=== PATIENT | male | born 1960 | race Caucasian/White ===

== ENCOUNTER 2018-03-28 19:07 | Emergency (ER) | payer BC ==
[2018-03-28 20:22] LABS: ABS Basophils 0.1 10^3/ul (0-0.2); ABS Eosinophils 0.1 10^3/ul (0-0.6); ABS Lymphocytes 2.6 10^3/ul (1.0-4.8); ABS Monocytes 0.9 10^3/ul (0-0.8); ABS Neutrophils 11.2 10^3/ul (1.5-7.7); ABS Nucleated RBC 0 10^3/ul; Eosinophil % 0.9 % (0-6); Hematocrit 45 % (42-52); Hemoglobin 15.7 g/dl (14.0-18.0); Lymphocyte % 17.3 % (25-47); Mean Corpuscular HGB Conc 35 g/dl (31-36); Mean Corpuscular Hemoglobin 32 pg (27-31); Mean Corpuscular Volume 93 fL (80-94); Mean Platelet Volume 7.6 um3 (7.4-10.4); Nucleated Red Blood Cells % 0.1; Platelet Count 222 10^3/ul (150-450); Red Blood Count 4.88 10^6/ul (4.00-5.40); Red Cell Distribution Width 14 % (10.5-15); White Blood Count 14.9 10^3/ul (3.5-10.8)
[2018-03-28 20:41] LABS: EGFR Non-African American 88.7 (>60)
[2018-03-28] MEDS ORDERED: NS 0.9% 1000 ML* 1,000 ML IV ONE (21:47)
[2018-03-29] MEDS ORDERED: Iohexol 300* (CONTRAST) 10 ML SDV IV ONE (00:28)
[2018-03-29 00:44] LABS: Urine Appearance Clear; Urine Blood 1+ (Negative); Urine Color Yellow; Urine Ketones 1+ (Negative); Urine Protein Negative (Negative); Urine Red Blood Cell Trace(0-2/hpf) (Absent); Urine Specific Gravity 1.047 (1.010-1.030); Urine Urobilinogen Negative (Negative); Urine White Blood Cell Trace(0-5/hpf) (Absent)
--- NOTE | 2018-03-29 02:27 | ED ---
GI/ HPI - HPI Summary HPI Summary: 57-year-old male presents with lower abdominal pain for the past 2 days. He admits to loose stools. He denies any fevers. Denies any nausea vomiting. Has never has before. no previous belly surgeries. No pain with urination. No flank pain. No hematuria. No blood in his stool. Has no medical conditions. No chest pain or shortness breath. States pain is greatest in the midline and then goes across his lower abdomen. He states area feels bloated. He said it is an achy type pain. Has not taking anything for his symptoms. - History of Current Complaint Chief Complaint: EDAbdPain Time Seen by Provider: 03/28/18 21:41 Stated Complaint: ABD PAIN Pain Intensity: 97 - Allergy/Home Medications Allergies/Adverse Reactions: Allergies Allergy/AdvReac Type Severity Reaction Status Date / Time amoxicillin Allergy Unknown Verified 03/28/18 19:09 Reaction Details Penicillins Allergy Unknown Verified 03/28/18 19:09 Reaction Details Home Medications: Home Medications Hydrochlorothiazide TAB* [Hydrodiuril TAB*] 12.5 mg PO DAILY 03/28/18 [History Confirmed 03/28/18] Losartan TAB* [Cozaar TAB*] 50 mg PO DAILY 03/28/18 [History Confirmed 03/28/18] PMH/Surg Hx/FS Hx/Imm Hx Endocrine/Hematology History: Denies: Hx Diabetes Cardiovascular History: Reports: Hx Hypertension History: Denies: Hx Renal Disease - Surgical History Surgery Procedure, Year, and Place: double hernia repair as an Infectious Disease History: No Infectious Disease History: Denies: Traveled Outside the [place] in Last 30 Days - Social History Alcohol Use: None Substance Use Type: Reports: None Smoking Status (MU): Never Smoked Tobacco Review of Systems Negative: Fever Negative: Chest Pain Negative: Shortness Of Breath Positive: Abdominal Pain, Diarrhea. Negative: Vomiting, Nausea All Other Systems Reviewed And Are Negative: Yes Physical Exam Triage Information Reviewed: Yes Vital Signs On Initial Exam: Initial Vitals Temp Pulse Resp BP Pulse Ox 98.4 F 82 16 135/84 95 03/28/18 19:10 03/28/18 19:10 03/28/18 19:10 03/28/18 19:10 03/28/18 19:10 Vital Signs Reviewed: Yes Appearance: Positive: Well-Appearing Skin: Positive: Warm, Dry Head/Face: Positive: Normal Head/Face Inspection Eyes: Positive: Normal, Conjunctiva Clear ENT: Positive: Pharynx normal Respiratory/Lung Sounds: Positive: Clear to Auscultation, Breath Sounds Present Cardiovascular: Positive: Normal, RRR Abdomen Description: Positive: Soft, Other: - lower abdominal pain Bowel Sounds: Positive: Present Musculoskeletal: Positive: Normal Neurological: Positive: Normal Psychiatric: Positive: Normal Diagnostics - Vital Signs Vital Signs Temp Pulse Resp BP Pulse Ox 03/29/18 02:00 86 94 03/29/18 01:53 82 164/88 92 03/29/18 01:23 84 170/93 94 03/29/18 01:00 84 94 03/29/18 00:53 79 161/93 94 03/29/18 00:34 85 168/90 95 03/29/18 00:00 84 94 03/28/18 23:53 85 174/93 92 03/28/18 23:37 87 94 03/28/18 23:22 82 186/91 93 03/28/18 23:00 85 94 03/28/18 22:53 84 165/92 95 03/28/18 22:22 83 168/91 96 03/28/18 22:00 89 97 03/28/18 21:52 81 157/89 94 03/28/18 21:26 98.6 F 83 16 133/75 03/28/18 19:10 98.4 F 82 16 135/84 95 - Laboratory Lab Results: Lab Results 03/28/18 03/28/18 03/28/18 Range/Units 20:13 20:13 20:13 WBC 14.9 H (3.5-10.8) 10^3/ul RBC 4.88 (4.00-5.40) 10^6/ul Hgb 15.7 (14.0-18.0) g/dl Hct 45 (42-52) % MCV 93 (80-94) fL MCH 32 H (27-31) pg MCHC 35 (31-36) g/dl RDW 14 (10.5-15) % Plt Count 222 (150-450) 10^3/ul MPV 7.6 (7.4-10.4) um3 Neut % (Auto) 75.2 (38-83) % Lymph % (Auto) 17.3 L (25-47) % Leslie % (Auto) 5.9 (0-7) % Eos % (Auto) 0.9 (0-6) % Baso % (Auto) 0.7 (0-2) % Absolute Neuts (auto) 11.2 H (1.5-7.7) 10^3/ul Absolute Lymphs (auto) 2.6 (1.0-4.8) 10^3/ul Absolute Monos (auto) 0.9 H (0-0.8) 10^3/ul Absolute Eos (auto) 0.1 (0-0.6) 10^3/ul Absolute Basos (auto) 0.1 (0-0.2) 10^3/ul Absolute Nucleated RBC 0 10^3/ul Nucleated RBC % 0.1 Sodium 139 (135-145) mmol/L Potassium 3.5 (3.5-5.0) mmol/L Chloride 99 L (101-111) mmol/L Carbon Dioxide 31 (22-32) mmol/L Anion Gap 9 (2-11) mmol/L BUN 22 (6-24) mg/dL Creatinine 0.89 (0.67-1.17) mg/dL Est GFR ( Amer) 107.4 (>60) Est GFR (Non-Af Amer) 88.7 (>60) BUN/Creatinine Ratio 24.7 H (8-20) Glucose 98 (70-100) mg/dL Lactic Acid 0.7 (0.5-2.0) mmol/L Calcium 9.8 (8.6-10.3) mg/dL Total Bilirubin 1.30 H (0.2-1.0) mg/dL AST 14 (13-39) U/L ALT 29 (7-52) U/L Alkaline Phosphatase 65 (34-104) U/L C-Reactive Protein 257.48 H (<8.01) mg/L Total Protein 7.9 (6.4-8.9) g/dL Albumin 4.3 (3.2-5.2) g/dL Globulin 3.6 (2-4) g/dL Albumin/Globulin Ratio 1.2 (1-3) Lipase 23 (11.0-82.0) U/L Urine Color Urine Appearance Urine pH (5-9) Ur Specific [place] (1.010-1.030) Urine Protein (Negative) Urine Ketones (Negative) Urine Blood (Negative) Urine Nitrate (Negative) Urine Bilirubin (Negative) Urine Urobilinogen (Negative) Ur Leukocyte Esterase (Negative) Urine WBC (Auto) (Absent) Urine RBC (Auto) (Absent) Urine Bacteria (Absent) Urine Glucose (Negative) 03/29/18 Range/Units 00:32 WBC (3.5-10.8) 10^3/ul RBC (4.00-5.40) 10^6/ul Hgb (14.0-18.0) g/dl Hct (42-52) % MCV (80-94) fL MCH (27-31) pg MCHC (31-36) g/dl RDW (10.5-15) % Plt Count (150-450) 10^3/ul MPV (7.4-10.4) um3 Neut % (Auto) (38-83) % Lymph % (Auto) (25-47) % Leslie % (Auto) (0-7) % Eos % (Auto) (0-6) % Baso % (Auto) (0-2) % Absolute Neuts (auto) (1.5-7.7) 10^3/ul Absolute Lymphs (auto) (1.0-4.8) 10^3/ul Absolute Monos (auto) (0-0.8) 10^3/ul Absolute Eos (auto) (0-0.6) 10^3/ul Absolute Basos (auto) (0-0.2) 10^3/ul Absolute Nucleated RBC 10^3/ul Nucleated RBC % Sodium (135-145) mmol/L Potassium (3.5-5.0) mmol/L Chloride (101-111) mmol/L Carbon Dioxide (22-32) mmol/L Anion Gap (2-11) mmol/L BUN (6-24) mg/dL Creatinine (0.67-1.17) mg/dL Est GFR ( Amer) (>60) Est GFR (Non-Af Amer) (>60) BUN/Creatinine Ratio (8-20) Glucose (70-100) mg/dL Lactic Acid (0.5-2.0) mmol/L Calcium (8.6-10.3) mg/dL Total Bilirubin (0.2-1.0) mg/dL AST (13-39) U/L ALT (7-52) U/L Alkaline Phosphatase (34-104) U/L C-Reactive Protein (<8.01) mg/L Total Protein (6.4-8.9) g/dL Albumin (3.2-5.2) g/dL Globulin (2-4) g/dL Albumin/Globulin Ratio (1-3) Lipase (11.0-82.0) U/L Urine Color Yellow Urine Appearance Clear Urine pH 6.0 (5-9) Ur Specific [place] 1.047 H (1.010-1.030) Urine Protein Negative (Negative) Urine Ketones 1+ A (Negative) Urine Blood 1+ A (Negative) Urine Nitrate Negative (Negative) Urine Bilirubin Negative (Negative) Urine Urobilinogen Negative (Negative) Ur Leukocyte Esterase Negative (Negative) Urine WBC (Auto) Trace(0-5/hpf) (Absent) Urine RBC (Auto) Trace(0-2/hpf) (Absent) Urine Bacteria Absent (Absent) Urine Glucose Negative (Negative) Result Diagrams: 03/28/18 20:13 03/28/18 20:13 Lab Statement: Any lab studies that have been ordered have been reviewed, and results considered in the medical decision making process. - CT abd CT Interpretation: Positive (See Comments) - Significant circumferential mural thickening of the sigmoid colon with significant surrounding fat stranding and possible diverticulitis CT Interpretation Completed By: Dru HENDRIX Course/Dx - Course Course Of Treatment: 57-year-old male presents with lower abdominal pain for the past 2 days. He admits to loose stools. He denies any fevers. Denies any nausea vomiting. Has never has before. no previous belly surgeries. No pain with urination. No flank pain. No hematuria. No blood in his stool. Has no medical conditions. No chest pain or shortness breath. States pain is greatest in the midline and then goes across his lower abdomen. He states area feels bloated. He said it is an achy type pain. Has not taking anything for his symptoms. on exam has tenderness lower abdomen. wbc 14.9. crp elevated. CT shows findings suggestive of colitis versus diverticulitis. We'll treat with Cipro and Flagyl. Patient understands agrees with plan. - Diagnoses Differential Diagnoses - Male: Bowel Obstruction, Colitis, Diverticulosis Provider Diagnoses: Colitis Discharge - Sign-Out/Discharge Documenting (check all that apply): Patient Departure - Discharge Plan Condition: Good Disposition: HOME Patient Education Materials: Colitis (ED) Referrals: [facility] [place], [place] [facility] [Outside] Additional Instructions: Take ciprofloxacin twice a day for 10 days, first dose given in ED Take Flagyl every 8 hours for 10 days, first dose given in ED Follow clear liquid diet until symptoms improve Return to ED if unable to keep anything down, develop fever, or any new or worsening symptoms - Billing Disposition and Condition Condition: GOOD Disposition: Home
[2018-03-29] MEDS ORDERED: Ketorolac INJ* 30 MG/ML 1 ML VIAL IV PUSH ONE (02:38)
[2018-03-29] MEDS ORDERED: Ciprofloxacin TAB* 500 MG PO ONE (02:55)
[2018-03-29] MEDS ORDERED: metroNIDAZOLE TAB* 250 MG PO ONE (02:55)
[2018-03-29 03:12] VITALS: BP 155/95
--- NOTE | 2018-03-29 08:06 | RAD ---
Indication: Lower abdominal pain. Contrast: Administered 150.1 ml of OMNIPAQUE 300 mg/ml CT of the abdomen and pelvis was performed after oral and IV contrast demonstration. Coronal and sagittal reconstructed images were obtained. The lung bases demonstrate no pleural fluid, nodules or masses. Heart is of normal size without evidence of pericardial effusion. Liver is normal in size. It is diffusely decreased in density consistent with hepatic steatosis. Spleen is normal in size. The gallbladder demonstrates no calcified gallstones. No pericholecystic fluid or wall thickening. The pancreas demonstrates no mass or pancreatic duct dilatation. No adrenal masses are noted. The kidneys demonstrate symmetric nephrograms without hydronephrosis. No retroperitoneal lymphadenopathy is noted. Aorta and cava are unremarkable. CT of the pelvis demonstrates long segment narrowing and mucosal thickening of the sigmoid colon. There appears to be localized extraluminal air noted consistent with localized perforation of diverticula. Findings are consistent with diverticulitis. Pericolonic infiltration of fat is noted. There is thickening of the base of the cecum with a thickened appendix. It is felt that this is likely due to secondary inflammation of the appendix due to adjacent infiltration of fat. The bony structures are grossly unremarkable. IMPRESSION: Diverticulitis of the sigmoid colon. No evidence of peridiverticular abscess is noted.
== END 2018-03-29 03:23 | disposition home or self-care (01) ==
LOC: ED 19:07
DX: K52.9 Noninfective gastroenteritis and colitis, unspecified (principal); K57.32 Diverticulitis of large intestine without perforation or abscess without bleeding; Z88.3 Allergy status to other anti-infective agents
CPT/HCPCS: 36415; 74177; 80053; 81003; 81015; 83605; 83690; 85025; 86140; 87086; 96361; 96374; 99284; A9270-GY; J1885; Q9967

== ENCOUNTER 2018-05-26 06:14 | Inpatient (IN) | payer BC ==
[2018-05-26] MEDS ORDERED: Ketorolac INJ* 30 MG/ML 1 ML VIAL IV PUSH ONE (06:47)
--- NOTE | 2018-05-26 06:50 | ED ---
GI/ HPI - HPI Summary HPI Summary: 57-year-old male presents with fevers for the past couple days. He states she s been treated for colitis 3 times. He states 2 months ago was diagnosed with colitis and diverticulitis by CT and had a course of antibiotics for 10 days. He states he felt better after the 10 days. He states though his symptoms returned and they put him on a course of antibiotics for a month. He states that he felt better after a month. He states that last he developed the symptoms again. He has been having intermittent abdominal pain. A week ago dr Laureano placed him on Flagyl and Bactrim. He states past couple days he s been having fevers between 102-104. He denies any blood in his stool. No diarrhea. He states he has no appetite. No urinary symptoms. No flank pain. His only had a hernia repair as his surgery. No family history of any kind GI issues. GI doctor is joe. He denies any chest pain shortness of breath or cough. No sinus congestion. No headache. He states hes lost 40 pounds in the past 2 months. He denies any blood in his stool. has not had a colonoscopy in 7 years. - History of Current Complaint Chief Complaint: EDFever Time Seen by Provider: 05/26/18 06:29 Stated Complaint: ABD PAIN Pain Intensity: 0 - Allergy/Home Medications Allergies/Adverse Reactions: Allergies Allergy/AdvReac Type Severity Reaction Status Date / Time amoxicillin Allergy Unknown Verified 05/26/18 06:19 Reaction Details Penicillins Allergy Unknown Verified 05/26/18 06:19 Reaction Details Home Medications: Home Medications Sulfamethoxazole/Trimethoprim [Sulfamethoxazole-Tmp Ds Tablet] 1 each PO BID [History Confirmed 05/26/18] metroNIDAZOLE [Flagyl 500 MG TAB] 500 mg PO BID 05/26/18 [History Confirmed ] PMH/Surg Hx/FS Hx/Imm Hx Endocrine/Hematology History: Denies: Hx Diabetes Cardiovascular History: Reports: Hx Hypertension History: Denies: Hx Renal Disease - Surgical History Surgery Procedure, Year, and Place: double hernia repair as an infant Infectious Disease History: No Infectious Disease History: Denies: Traveled Outside the [place] in Last 30 Days - Family History Known Family History: Positive: Other - no GI issues - Social History Alcohol Use: None Substance Use Type: Reports: None Smoking Status (MU): Never Smoked Tobacco Review of Systems Positive: Fever Negative: Chest Pain Negative: Shortness Of Breath, Cough Positive: Abdominal Pain, Nausea. Negative: Vomiting, Diarrhea All Other Systems Reviewed And Are Negative: Yes Physical Exam Triage Information Reviewed: Yes Vital Signs On Initial Exam: Initial Vitals Temp Pulse Resp BP Pulse Ox 101.5 F 118 20 127/77 99 05/26/18 06:18 05/26/18 06:18 05/26/18 06:18 05/26/18 06:18 05/26/18 06:18 Vital Signs Reviewed: Yes Appearance: Positive: Well-Appearing Skin: Positive: Warm, Dry Head/Face: Positive: Normal Head/Face Inspection Eyes: Positive: Normal, EOMI, EDDIE, Conjunctiva Clear ENT: Positive: Pharynx normal Respiratory/Lung Sounds: Positive: Clear to Auscultation, Breath Sounds Present Cardiovascular: Positive: Normal, RRR Abdomen Description: Positive: Nontender, Soft Bowel Sounds: Positive: Present Musculoskeletal: Positive: Normal Neurological: Positive: Normal Psychiatric: Positive: Normal Diagnostics - Vital Signs Vital Signs Temp Pulse Resp BP Pulse Ox 05/26/18 06:18 101.5 F 118 20 127/77 99 - Laboratory Result Diagrams: 05/26/18 06:52 05/26/18 06:52 Lab Statement: Any lab studies that have been ordered have been reviewed, and results considered in the medical decision making process. - Radiology chest Xray Interpretation: Positive (See Comments) - IMPRESSION: MINIMAL PATCHY ATELECTASIS VERSUS CONSOLIDATION OF THE RIGHT MIDDLE LOBE. Radiology Interpretation Completed By: Radiologist - CT abd CT Interpretation: Positive (See Comments) - IMPRESSION: 1. There is focal inflammatory change at the right of midline lower mesenteric fat adjacent to the sigmoid colon where there is a small degree of wall thickening. The adjacent appendix is obscured by the mesenteric fat stranding but the distal portion of the appendix has gas in the lumen. Diverticulitis is favored over appendicitis. 2. Additional chronic and degenerative changes described in the body the report. CT Interpretation Completed By: Radiologist SIMEON Course/Dx - Course Course Of Treatment: 57-year-old male presents with fevers for the past couple days. He states shes been treated for colitis 3 times. He states 2 months ago was diagnosed with colitis and diverticulitis by CT and had a course of antibiotics for 10 days. He states he felt better after the 10 days. He states though his symptoms returned and they put him on a course of antibiotics for a month. He states that he felt better after a month. He states that last he developed the symptoms again. He has been having intermittent abdominal pain. A week ago dr Laureano placed him on Flagyl and Bactrim. He states past couple days hes been having fevers between 102-104. He denies any blood in his stool. No diarrhea. He states he has no appetite. No urinary symptoms. No flank pain. His only had a hernia repair as his surgery. No family history of any kind GI issues. GI doctor is joe. He denies any chest pain shortness of breath or cough. No sinus congestion. No headache. He states hes lost 40 pounds in the past 2 months. On exam nontender abd. wbc 12 with left shift. sodium 132. crp elevated. chest xray shows atelectsais vs consolidation. CT shows diverticulitis likely. discussed with dr laureano recommends admission for iv antibiotics. discussed with dr shields who agrees to admit patient. - Diagnoses Differential Diagnoses - Male: Enterocolitis, Gastroenteritis (Viral), Urinary Tract Infection Provider Diagnoses: Diverticulitis Discharge - Sign-Out/Discharge Documenting (check all that apply): Patient Departure - Discharge Plan Condition: Good Disposition: ADMITTED TO [facility] - Billing Disposition and Condition Condition: GOOD Disposition: Admitted to [facility]
[2018-05-26] MEDS ORDERED: Ketorolac INJ* 15 MG/ML 1 ML VIAL ONE (07:09)
[2018-05-26 07:20] LABS: ABS Basophils 0 10^3/ul (0-0.2); ABS Eosinophils 0 10^3/ul (0-0.6); ABS Lymphocytes 0.5 10^3/ul (1.0-4.8); ABS Monocytes 0.3 10^3/ul (0-0.8); ABS Neutrophils 11.2 10^3/ul (1.5-7.7); ABS Nucleated RBC 0 10^3/ul; Eosinophil % 0.1 % (0-6); Hematocrit 43 % (42-52); Hemoglobin 14.9 g/dl (14.0-18.0); Lymphocyte % 4.2 % (25-47); Mean Corpuscular HGB Conc 35 g/dl (31-36); Mean Corpuscular Hemoglobin 31 pg (27-31); Mean Corpuscular Volume 90 fL (80-94); Mean Platelet Volume 7.3 um3 (7.4-10.4); Nucleated Red Blood Cells % 0; Platelet Count 241 10^3/ul (150-450); Red Blood Count 4.76 10^6/ul (4.00-5.40); Red Cell Distribution Width 13 % (10.5-15); White Blood Count 12.1 10^3/ul (3.5-10.8)
[2018-05-26] MEDS ORDERED: Ketorolac INJ* 15 MG/ML 1 ML VIAL IV PUSH ONE (07:20)
[2018-05-26 07:37] LABS: EGFR Non-African American 92.3 (>60)
[2018-05-26] MEDS: NS 0.9% 1000 ML* 2,000 ML IV ONE (07:38)
--- NOTE | 2018-05-26 07:45 | RAD ---
HISTORY: fever COMPARISONS: None VIEWS: 4: Frontal dual-energy and lateral views of the chest. FINDINGS: CARDIOMEDIASTINAL SILHOUETTE: The cardiomediastinal silhouette is normal. URIEL: The uriel are normal. PLEURA: The costophrenic angles are sharp. No pleural abnormalities are noted. LUNG PARENCHYMA: There is minimal patchy alveolar opacification of the right middle lobe. ABDOMEN: The upper abdomen is clear. There is no subphrenic gas. BONES AND SOFT TISSUES: No bone or soft tissue abnormalities are noted. OTHER: None. IMPRESSION: MINIMAL PATCHY ATELECTASIS VERSUS CONSOLIDATION OF THE RIGHT MIDDLE LOBE.
[2018-05-26] MEDS ORDERED: Iohexol 300* (CONTRAST) 10 ML SDV IV ONE (07:49)
--- NOTE | 2018-05-26 10:04 | RAD ---
CLINICAL HISTORY: Abdominal pain and fever COMPARISON: Most recent comparison CT examination is dated March 29, 2018 TECHNIQUE: Contrast enhanced CT examination of the abdomen and pelvis from the lung bases through the initial tuberosities. The patient received 135 mL Omnipaque 300 intravenously prior to imaging.The patient received oral contrast as well prior to imaging. FINDINGS: VISUALIZED LUNG BASES: The visualized lung bases are grossly clear. There is no pleural effusion. ABDOMEN AND PELVIS: The liver, spleen, pancreas and adrenal glands are grossly normal in appearance. The gallbladder is normal. The kidneys are normal in appearance without focal mass, calcification or signs of hydronephrosis. Oral contrast has progressed only as far as the midpoint of the small bowel which limits evaluation of the distal small bowel and colon. The small and large bowel are not distended. The distal appendix is visualized in the coronal plane measuring 8 mm in diameter with gas in the distal lumen (coronal image 46). Adjacent to the appendix there is stranding of the peritoneal fat. The peritoneal stranding is adjacent to the sigmoid colon where there appears to be wall thickening though evaluation is limited in the absence of oral contrast having progressed as far. There is no drainable fluid collection or free intraperitoneal gas. There is no gross retroperitoneal or mesenteric lymphadenopathy. The pelvic viscera is normal in appearance. There is coarse atherosclerotic calcification at the lower abdominal aorta extending of the bilateral common iliac arteries. Degenerative changes include multilevel loss of intervertebral disc height involving the lower thoracic and lumbar spine.There are no sinister bone lesions. IMPRESSION: 1. There is focal inflammatory change at the right of midline lower mesenteric fat adjacent to the sigmoid colon where there is a small degree of wall thickening. The adjacent appendix is obscured by the mesenteric fat stranding but the distal portion of the appendix has gas in the lumen. Diverticulitis is favored over appendicitis. 2. Additional chronic and degenerative changes described in the body the report.
[2018-05-26] MEDS ORDERED: Ciprofloxacin 400MG IVPREMIX(* 400 MG/200 ML BAG IVPB ONE (10:30)
[2018-05-26] MEDS ORDERED: metroNIDAZOLE IV 500 MG/100ML* 500 MG/100 ML BAG IVPB ONE (10:30)
[2018-05-26 10:48] LABS: Urine Appearance Clear; Urine Blood Negative (Negative); Urine Color Yellow; Urine Ketones Negative (Negative); Urine Protein 1+(30 mg/dL) (Negative); Urine Red Blood Cell Absent (Absent); Urine Specific Gravity > 1.060 (1.010-1.030); Urine Urobilinogen Negative (Negative); Urine White Blood Cell Trace(0-5/hpf) (Absent)
[2018-05-26] MEDS ORDERED: NS 0.9% 1000 ML* 1,000 ML IV SCH (11:30)
[2018-05-26] MEDS: metroNIDAZOLE IV 500 MG/100ML* 500 MG/100 ML BAG IVPB SCH ×2 (12:59→21:03)
[2018-05-26] MEDS: Acetaminophen TAB* 325 MG PO PRN (16:47)
[2018-05-26] MEDS ORDERED: Melatonin 3 MG TAB PO PRN (17:59)
--- NOTE | 2018-05-26 20:07 | PN ---
Hospitalist Progress Note Date of Service: 05/26/18 Patient has a positive cdiff stool sx however he mann snot have diarrhea, suspect he is colonized with cdiff. He does not required tx for C-diff nor does he required isolation unless he developed significant diarrhea. Discussed with Dr. Gill who agrees.
--- NOTE | 2018-05-26 21:21 | HP ---
CC: Dr. Greg Miguel * HISTORY AND PHYSICAL: DATE OF ADMISSION: 05/26/18 PROVIDER: Chin Chin NP ATTENDING PHYSICIAN: Dr. Parsons * (report dictated by Chin Chin NP) PRIMARY CARE PROVIDER: Dr. Greg Miguel. ADDICTION MEDICINE PHYSICIAN: Dr. Laureano. CHIEF COMPLAINT: Fever. HISTORY OF PRESENT ILLNESS: Mr. Mcgee is a very pleasant 57-year-old male with a past medical history of obesity, hypertension, hyperlipidemia, previous tobacco abuse, and asthma who presents to the emergency department this morning with report of a fever starting yesterday between 102 and 104. The patient has been under treatment for diverticulitis for the past 2 months intermittently. In mid March on 03/28/18, the patient presented to the emergency department after multiple days of lower diffuse abdominal pain with diarrhea and was diagnosed with diverticulitis of the sigmoid colon. He reports that at that time, he finished his course of Cipro and Flagyl and did start to feel better at that time, however within a week or 2 of being off antibiotics he started to feel worse again and followed up with his primary care provider who put him on a 20-day course of Flagyl and Cipro. During that time, the patient reports that his abdominal pain and discomfort and diarrhea resolved. However, after he stopped the antibiotics, again he developed some discomfort, which he reports as pressure and did have some intermittent fevers of over 101. He followed up with Dr. Laureano, his shrink pit supervisor, last week in the office where he was started on Bactrim and Flagyl. The patient again reports that he started to feel better after a couple of days of being on antibiotics and currently reports he is on day 6 of treatment, however yesterday he had to leave work due to not feeling well and noted he had a temperature of 104. He reports that he has been up for the last 2 nights with abdominal discomfort, reporting he has band of lower abdominal pressure, but no pain. He denies diarrhea, nausea, or vomiting. On evaluation today, the patient reports that he feels better. He denies pain, fever, chills. He reports he really has not eaten much in the last couple of days. His temperature on arrival to the emergency department was 101.5, he was given 15 mg of Toradol, currently his temperature is down to 98.4. As well, he did screen positive for sepsis criteria on admission with tachycardia, fever with white blood cell count of 12. He is noted to have a CRP of 103.43. His urine specific gravity is greater than 1.060 and appears very dry on exam. The patient's lactic acid is normal at 0.9. In the emergency department, they started him on IV Flagyl and IV Cipro and gave him 2 liters of normal saline. The patient will be admitted to the hospitalist service for diverticulitis, failed outpatient antibiotics. The patient denies any cough, sputum production, headache, neck pain. Denies dysuria, hematuria, increased urinary frequency. Denies any open wounds. No swollen red joints. PAST MEDICAL HISTORY: 1. Obesity. 2. Previous tobacco abuse. 3. Asthma, mild. 4. Environmental allergies. 5. Hypertension. 6. Hyperlipidemia. MEDICATIONS: Home medications: 1. Flagyl 500 mg p.o. b.i.d. 2. Bactrim DS p.o. b.i.d. 3. Losartan 50 mg p.o. daily. 4. Hydrochlorothiazide 12.5 mg p.o. daily. ALLERGIES: PENICILLIN. FAMILY HISTORY: The patient is adopted, does not know his family history. SOCIAL HISTORY: The patient reports a 30-year history of smoking quitting in 2009, reporting he smoked half a pack to a pack a day. Reports 2 to 3 beers daily. He currently works as a postal agent. He lives with his who is his healthcare proxy. He reports he has grown children. REVIEW OF SYSTEMS: A 14-point review of systems was performed. All the pertinent positives and negatives are mentioned in the history of present illness. Otherwise are negative. PHYSICAL EXAMINATION GENERAL APPEARANCE: A 57-year-old male, alert and oriented x3, well-developed, in no acute distress. VITAL SIGNS: Temperature 98.4, heart rate 95, respirations 16, O2 sat 100% on 2 liters nasal cannula, and blood pressure 145/60. HEENT: Head is normocephalic and atraumatic. Pupils are equal and reactive to light. Oropharynx is clear. Dry mucous membranes. Good dentition. NECK: Supple. LUNGS: Clear to auscultation bilaterally. Good aeration throughout. No accessory muscle use. CARDIAC: S1 and S2. Regular rate and rhythm. No murmur, rub, or gallop appreciated. No lower extremity edema noted. No JVD noted. ABDOMEN: Obese, round, soft, and nontender. No guarding. Normal bowel sounds throughout. EXTREMITIES: No clubbing, cyanosis, or edema. Moves all extremities equally. NEURO: Cranial nerves II through XII grossly intact. No focal deficits noted. DIAGNOSTIC STUDIES/LAB DATA: Sodium 132, potassium 3.6, chloride 98, carbon dioxide 24, anion gap 10, BUN 13, creatinine of 0.86, glucose 109, lactic acid 0.9, calcium 9.0. Total bilirubin 0.70, AST 31, ALT 25, alkaline phosphatase 61. C- reactive protein 103.43, total protein 7.5, albumin 3.9, lipase 31. WBC is 12.1, RBC is 4.76, HBG 14.9, HCT 43, MCV 90, MCH 31, MCHC 35, and platelet count 241. Urinalysis: Urine specific gravity greater than 1.060, 1+ protein, leukocyte esterase trace, otherwise unremarkable. CT abdomen and pelvis with contrast. Impression: 1. There is focal inflammatory change at the right of the midline lower mesenteric fat adjacent to the sigmoid colon where there is a small degree of wall thickening. The adjacent appendix is obscured by the mesenteric fat stranding, but the distal portion of the appendix has gas in the lumen. Diverticulitis was favored over appendicitis. 2. Additional chronic and degenerative changes described in the body of the report quotation. ASSESSMENT AND PLAN: Mr. Mcgee is a 57-year-old male with a past medical history of obesity, hypertension, asthma, previous tobacco abuse, who has been undergoing treatment for diverticulitis and colitis for the past 2 months as an outpatient, who presented to the emergency department today with a report of fever starting yesterday between 102 and 104. 1. Diverticulitis. The patient has failed p.o. antibiotics and he will require IV antibiotic therapy. He has been started on ciprofloxacin and Flagyl IV and I will continue these at this time. Dr. Laureano, who follows the patient as an outpatient, is our consulting GI provider today and I have locked a message for him regarding the patient to see if he has any further suggestions at this time. The patient appears to be doing well and stable at this time. We will discuss with GI how longer the IV antibiotic course will be required as well as a plan for followup colonoscopy whether that will be inpatient or wait after the patient has the course of antibiotics. The patient was started on fluid resuscitation at 8:00 this morning, and per the sepsis protocol, he is to receive 3 liters per 30 mL/kg. At this point, he has received 2 liters, we will give the patient another 1 liter. I will use this note as my followup sepsis note. At this point, the patient does not have signs of sepsis. His tachycardia and fever have resolved. I will add on a second lactic acid; however, the first one was negative. The patient will be placed on a clear liquid diet. Stool, urine, and C. diff cultures have been sent. It does not appear that the patient has C. diff colitis as he has not been having diarrhea. Check CBC, BMP, and CRP in the a.m. 2. Dehydration. The patient is receiving IV fluids. Repeat labs in the a.m. 3. Hypertension. Continue losartan. We will hold hydrochlorothiazide in the setting of dehydration. 4. Asthma, controlled. 5. Albuterol p.r.n. 6. DVT prophylaxis. Heparin subcu. TIME SPENT: Approximately 60 minutes was spent on this admission. CHIN CHIN, JANET [id number]/[facility] #: [id number] DAT
[2018-05-26] MEDS: Ciprofloxacin 400MG IVPREMIX(* 400 MG/200 ML BAG IVPB SCH (22:33)
[2018-05-27] MEDS: Acetaminophen TAB* 325 MG PO PRN ×3 (00:04→20:40)
[2018-05-27] MEDS: metroNIDAZOLE IV 500 MG/100ML* 500 MG/100 ML BAG IVPB SCH ×3 (05:00→20:41)
[2018-05-27 05:58] LABS: ABS Basophils 0 10^3/ul (0-0.2); ABS Eosinophils 0 10^3/ul (0-0.6); ABS Lymphocytes 0.8 10^3/ul (1.0-4.8); ABS Monocytes 0.3 10^3/ul (0-0.8); ABS Neutrophils 8.6 10^3/ul (1.5-7.7); ABS Nucleated RBC 0 10^3/ul; Eosinophil % 0.1 % (0-6); Hematocrit 41 % (42-52); Lymphocyte % 7.9 % (25-47); Mean Corpuscular HGB Conc 34 g/dl (31-36); Mean Corpuscular Hemoglobin 31 pg (27-31); Mean Corpuscular Volume 90 fL (80-94); Mean Platelet Volume 7.6 um3 (7.4-10.4); Nucleated Red Blood Cells % 0; Platelet Count 177 10^3/ul (150-450); Red Blood Count 4.52 10^6/ul (4.00-5.40); Red Cell Distribution Width 13 % (10.5-15); White Blood Count 9.7 10^3/ul (3.5-10.8)
[2018-05-27 06:15] LABS: EGFR Non-African American 129.8 (>60)
[2018-05-27] MEDS: Ciprofloxacin 400MG IVPREMIX(* 400 MG/200 ML BAG IVPB SCH ×2 (10:06→21:55)
[2018-05-27] MEDS ORDERED: metroNIDAZOLE TAB* 250 MG PO SCH (10:15)
[2018-05-27] MEDS ORDERED: NS 0.9% 1000 ML* 1,000 ML IV SCH (10:45)
[2018-05-27] MEDS: Vancomycin CAP* 125 MG CAP PO SCH ×4 (11:52→20:40)
--- NOTE | 2018-05-27 15:03 | PN ---
Subjective Date of Service: 05/27/18 Interval History: Feels much better--his appetite has returned. No abd pain. Diarrhea has slowed down. Objective Active Medications: Acetaminophen (Tylenol Tab*) 650 mg PO Q6H PRN PRN Reason: FEVER/PAIN Last Admin: 05/27/18 08:50 Dose: 650 mg Ciprofloxacin/Dextrose (Cipro 400 Mg Ivpremix(*)) 400 mg in 200 mls @ 200 mls/ hr IVPB Q12H [facility] Last Admin: 05/27/18 10:06 Dose: 200 mls/hr Metronidazole/Sodium Chloride (Flagyl 500 Mg Ivpb*) 500 mg in 100 mls @ 100 mls /hr IVPB Q8H [facility] Last Admin: 05/27/18 13:31 Dose: 100 mls/hr Sodium Chloride (Ns 0.9% 1000 Ml*) 1,000 mls @ 125 mls/hr IV PER RATE [facility] Last Admin: 05/27/18 11:52 Dose: 125 mls/hr Melatonin (Melatonin) 3 mg PO BEDTIME PRN; Protocol PRN Reason: INSOMNIA Vancomycin HCl (Vancomycin Cap*) 125 mg PO QID [facility] Last Admin: 05/27/18 13:31 Dose: 125 mg Vital Signs - 8 hr 05/27/18 05/27/18 05/27/18 07:30 08:01 11:30 Temperature 100.7 F 98.7 F Pulse Rate 98 86 Respiratory 16 18 16 Rate Blood Pressure 132/63 126/75 (mmHg) O2 Sat by Pulse 97 96 Oximetry Oxygen Devices in Use Now: Nasal Cannula Appearance: Alert, in a chair. In good spirits. Looks comfortable. Eyes: No Scleral Icterus Respiratory: Symmetrical Chest Expansion and Respiratory Effort, Clear to Auscultation, Clear to Percussion Cardiovascular: NL Sounds; No Murmurs; No JVD, RRR, No Edema, - Abdominal: NL Sounds; No Tenderness; No Distention, No Hepatosplenomegaly, - Extremities: No Edema, No Clubbing, Cyanosis, - Skin: No Rash or Ulcers, No Nodules or Sclerosis, - Neurological: Alert and Oriented x 3, NL Sensation Result Diagrams: 05/27/18 05:28 05/27/18 05:28 Microbiology and Other Data: Microbiology 05/26/18 06:52 Urine Culture - Final Urine No Growth (<1,000 CFU/mL) 05/26/18 07:23 Aerobic Blood Culture - Preliminary Blood Venous No Growth Day 1 Anaerobic Blood Culture - Preliminary No Growth Day 1 05/26/18 06:52 Aerobic Blood Culture - Preliminary Blood Venous No Growth Day 1 Anaerobic Blood Culture - Preliminary No Growth Day 1 05/26/18 08:09 Stool Gross Appearance - Final Stool C. difficile DNA Amplification - Final 027 Presumptive NEGATIVE Toxigenic C.diff POSITIVE Assess/Plan/Problems-Billing Assessment: - Patient Problems (1) C. difficile diarrhea Current Visit: Yes Status: Acute Code(s): A04.72 - ENTEROCOLITIS D/T CLOSTRIDIUM DIFFICILE, NOT SPCF RECUR SNOMED Code(s): 9067099721418 Comment: Continue oral vanco. If clinically doing well 05/28, consider stopping IV antibiotics and discharging on 14 day course po vanco. His appetite has returned to normal and he no longer requires IV hydration. (2) HTN (hypertension) Current Visit: Yes Status: Acute Code(s): I10 - ESSENTIAL (PRIMARY) HYPERTENSION SNOMED Code(s): 44555291 Comment: Hold lisinopril and thiazide.
[2018-05-28] MEDS: metroNIDAZOLE IV 500 MG/100ML* 500 MG/100 ML BAG IVPB SCH (04:47)
[2018-05-28] MEDS: Vancomycin CAP* 125 MG CAP PO SCH (09:01)
--- NOTE | 2018-05-28 10:23 | PN ---
Progress Note - Progress Note Date of Service: 05/28/18 Note: Time spent on discharge 45 minutes, including exam of the patient, discussion with patient, nurse, Dr. Laureano, and review of the EMR and preparation of discharge documents.
[2018-05-28] MEDS: Ciprofloxacin 400MG IVPREMIX(* 400 MG/200 ML BAG IVPB SCH (10:52)
[2018-05-28 10:53] VITALS: BP 133/78
--- NOTE | 2018-05-28 11:48 | DS ---
CC: Dr. Greg Miguel; Dr. Laureano.. DISCHARGE SUMMARY: DATE OF ADMISSION: DATE OF DISCHARGE: 05/28/18 HOSPITAL COURSE: This 57-year-old man was admitted because of fever. He has been treated for divert iculitis more than once over the past 2 months. He was in the ER on 03/28/18 and was diagnosed with s igmoid diverticulitis. He was given oral Cipro and metronidazole. He felt better, but a week or two after being off antibiotics, he felt worse. He was then put on a 20-day course of oral metronidazol e and ciprofloxacin. Pain improved, but recurred again with a temperature of 101 degrees. The patient had a mild leukocytosis. He had a temperature of highest of 102.3 while here. His other laboratory tests were unremarkable. He did have an elevated C-reactive protein at 403 with a repeat of 167. Stool test for DNA amplification was positive for toxigenic Clostridium difficile. He was treated wit h oral vancomycin. He felt much better. His temperature on 05/28/18 at 07:41 p.m. was 100.6, tough he is normal with morning, I would expect his fever to gradually resolve. FINAL DIAGNOSES: 1. Clostridium difficile infection. 2. Hypertension. DISCHARGE MEDICATIONS: 1. Vancomycin 125 mg 4 times a day for 14 more days. 2. Losartan and hydrochlorothiazide are on hold until evaluation by his primary care physician. DISCHARGE DISPOSITION: Home. DISCHARGE CONDITION: Improved. [id number]/[facility] #: [id number]
--- NOTE | 2018-05-28 19:39 | CONS ---
CONSULTATION REPORT: DATE OF CONSULT: 05/27/18 REQUESTING PHYSICIAN: Mikey Tiwari NP. INDICATION: Diverticulitis. NARRATIVE: Mr. Mcgee is a pleasant 57-year-old gentleman, well known to myself. I had seen him in the office just about a week ago for what I thought was recurrent diverticulitis. The patient had been diagnosed with diverticulitis a few months ago, was initially treated with Cipro and Flagyl. He improved on that treatment, but then relapsed. He was treated with a longer course of Cipro and Flagyl and again improved, but then relapsed again, and that is what I thought him, I treated him with Bactrim and Flagyl, hoping that it would improve things. He states that he continues to have abdominal pain, no diarrhea , really just not feeling well. He is having fevers and night sweats and did have a temperature to 104. He was admitted to the hospital for IV antibiotics. He then started developing diarrhea. He did have a positive C. diff last night , initially he was not having diarrhea, so it was decided not to treat him, however then he did start having diarrhea and this morning, he remained febrile having temperature of 100 to 102. He does feel better, but still has some pain , febrile, and now is having diarrhea. PAST MEDICAL HISTORY: Significant for obesity, asthma, hypertension, hyperlipidemia. MEDICATIONS: Include: 1. Flagyl. 2. Bactrim. 3. Losartan. 4. Hydrochlorothiazide. ALLERGIES: To PENICILLIN. FAMILY HISTORY: He is adopted. SOCIAL HISTORY: He does drink alcohol. He quit smoking approximately 8 years ago. REVIEW OF SYSTEMS: Twelve-systems were reviewed, other than that mentioned in the HPI were unremarkable. PHYSICAL EXAM: Temperature is 100.7, blood pressure is 132/63, O2 sat is 97%, pulse is 98. General: Slightly ill-appearing male, in no apparent distress. Alert, oriented, pleasant, and fluent. HEENT: Mucous membranes are moist without lesions, ulcers, or exudate. Neck is supple. Trachea is midline. Head is normocephalic, atraumatic. Heart: Regular rate and rhythm. Lungs: Clear to auscultation. Abdomen: Obese, positive bowel sounds, soft, slightly tender throughout. No rebound. No guarding. No masses. DIAGNOSTIC STUDIES/LAB DATA: Labs of note, his white count upon admission was 12.1, it has come down to 9.7; hemoglobin is 14, platelet count 177. Creatinine is 0.64. C-reactive protein is 167. He did have a CT abdomen and pelvis on 05/26/18, which revealed focal inflammatory change of the right midline, lower mesenteric fat adjacent to the sigmoid colon where there is a small degree of wall thickening. The adjacent appendix is obscured by the mesenteric fat stranding, but the distal portion of the appendix has gas in the lumen. Diverticulitis was favored over appendicitis. No drainable fluid collections or free intraperitoneal gas. ASSESSMENT AND PLAN: A pleasant 57-year-old gentleman with what I thought was initially difficult to treat diverticulitis and may be IV antibiotics would help , now that his C. diff is positive. I do wonder if some of this could be C. diff. Since he really is not turning the corner on IV antibiotics over 24 hours , I would like to start vancomycin, I will start him on a 125 mg p.o. 4 times a day. We will continue with the Norma and Minerva for right now. I will check back on him tomorrow. [id number]/[facility] #: [id number] DAT
== END 2018-05-28 11:20 | disposition home or self-care (01) | DRG 248 ==
LOC: ED 06:14 → SSU 10:29
PROVIDERS: ADMIT Internal Medicine; ATTEND Internal Medicine
DX: A04.72 Enterocolitis due to Clostridium difficile, not specified as recurrent (principal); K57.32 Diverticulitis of large intestine without perforation or abscess without bleeding; I10 Essential (primary) hypertension; E66.9 Obesity, unspecified; E78.5 Hyperlipidemia, unspecified; J45.909 Unspecified asthma, uncomplicated; Z68.29 Body mass index [BMI] 29.0-29.9, adult; Z87.891 Personal history of nicotine dependence; Z79.899 Other long term (current) drug therapy; Z88.0 Allergy status to penicillin
CPT/HCPCS: 36415; 71046; 74177; 80048; 80053; 81003; 81015; 83605; 83690; 85025; 86140; 87040; 87045; 87046; 87077; 87086; 87493; 87899; 96374; 99284; A9270-GY; J0744; J1885; J3490; Q9967

== ENCOUNTER 2019-06-11 13:18 | Day surgery (SDC) | payer BC ==
[~2019-06-11 13:18] MED LIST: Buffered Lidocaine 1% SYRIN* 1 ML/SYRINGE INTRADERM ONE; Lactated Ringers 1000 ML Bag* 1,000 ML IV SCH
[2019-06-11] MEDS ORDERED: ceFAZolin 2 GM PREMIX in ORs 2 GM/50 ML BAG ONE (13:36)
[2019-06-11] MEDS ORDERED: Lidocaine 1% w EPI 1:200,000* SDV 30 ML VIAL ONE (15:02)
[2019-06-11] MEDS ORDERED: Ropivacaine 0.2% * 2 MG/ML VIAL ONE (15:02)
[2019-06-11] MEDS ORDERED: Propofol* 10 MG/ML 20 ML BTL ONE (16:21)
[2019-06-11] MEDS ORDERED: Midazolam* 1 MG/ML 2 ML VIAL (2 MG) ONE (16:21)
[2019-06-11] MEDS ORDERED: fentaNYL* 50 MCG/ML 2 ML VIAL (100 MCG VIAL) ONE (16:22)
[2019-06-11] MEDS ORDERED: Ketorolac INJ* 30 MG/ML 1 ML VIAL ONE (17:35)
[2019-06-11] MEDS ORDERED: Dexamethasone IV* 4 MG/ML 1 ML (4 MG) ONE (17:35)
[2019-06-11] MEDS ORDERED: Metoclopramide IV* 5 MG/ML 2 ML VIAL ONE (17:35)
[2019-06-11] MEDS ORDERED: Ondansetron INJ* 2 MG/ML VIAL ONE (17:35)
[2019-06-11] MEDS ORDERED: oxyCODONE TAB* 5 MG TAB PO PRN (17:46)
[2019-06-11] MEDS ORDERED: DiMENhydriNATE IV* 50 MG/ML VIAL IV PUSH PRN (17:46)
[2019-06-11] MEDS ORDERED: HYDROmorphone INJ1* 1 MG/ML SYRINGE IV PRN (17:46)
[2019-06-11] MEDS ORDERED: Acetaminophen TAB* 325 MG PO PRN (17:46)
[2019-06-11] MEDS ORDERED: Naloxone* 0.4 MG/ML 1 ML VIAL IV PRN (17:46)
[2019-06-11 18:54] VITALS: BP 140/85
--- NOTE | 2019-06-12 12:21 | OP ---
DATE OF OPERATION: 06/11/19 - [place] [facility] DATE OF : 64 SURGEON: [place] MD. NURSE PRACTITIONER HOSPITALIST: NATALI Daily An tax accounting assistant was needed for the entirety of the case to help with positioning, retraction, and was utilized for throughout all portions of the case due to the patient's body habitus. PRE-OP DIAGNOSIS: Right knee medial meniscus tear. POST-OP DIAGNOSIS: Right knee medial and lateral meniscus tearing with some mild osteoarthritic change in the medial compartment, patella, and plica. OPERATIVE PROCEDURE: Right knee arthroscopy with partial medial meniscectomy, partial lateral meniscectomy, as well as chondroplasty of the medial femoral condyle and synovectomy of the wounds. COMPLICATIONS: None. ESTIMATED BLOOD LOSS: Minimal. INDICATIONS: Alex Mcgee is a 59-year-old male who has had persistent knee pain with catching and locking. He has elected to proceed with surgical treatment. Risks and benefits were discussed at length including, but not limited to, bleeding; infection; damage to nerves, vessels, surrounding structures; wound nonhealing; persistent pain; need for further surgery; scarring; stiffness; incomplete relief of symptoms; risks of anesthesia. DESCRIPTION OF PROCEDURE: The patient was greeted in the preoperative area by the attending surgeon. Correct extremity was marked and consent was confirmed. The patient was brought back to the operating suite and was placed in supine position on the operating table, underwent general anesthesia and LMA intubation , after which he was appropriately positioned on the bed. The lateral post was positioned. Unsterile tourniquet was placed high on the proximal thigh. The right leg was then prepped and draped in the usual sterile fashion with chlorhexidine soap, scrub, and alcohol wipe, and a final prep with ChloraPrep. After appropriate surgical pause indicating side, site, procedure and administration of antibiotics, the knee was intra-articularly injected with 1% lidocaine with epi. The anterolateral portal was made sharply with an 11 blade. Scope was introduced through the joint. The joint was examined. There was some synovitis that was present anteriorly. The anteromedial portal was made and shaver was used to debride back the abundant synovitis. The medial compartment was examined. There were small areas of grade 1 changes and small area of grade 2 changes with some unstable flaps that were debrided back using the shaver. There was evidence of a parrot-beak type of meniscus tear with unstable flap that was entrapped. This was debrided back using the probe and the reva and biters were used to debride this back. This extended to involve the root as well. Once this was debrided back and the flaps were removed and debrided back, attention was directed to lateral compartment. The knee was placed in [id number] position. There were grade 0 to 1 changes. There was some mild fraying at the body and the root of the meniscus. It was debrided back using the shaver. The knee was placed in extension. There was some small amount of chondral changes with grade 0 to 1 changes of the patellofemoral joint. The gutters were examined and found to be intact without any loose debris. There were plica that were present that were debrided back using the biters and reva. The wounds were then copiously irrigated with sterile saline. The portals were closed with 3-0 nylon in interrupted fashion. Sterile dressings were applied. A Cryo/Cuff was applied. He was woken from anesthesia and transferred to PACU in stable condition. POSTOPERATIVE PLAN: He will be weightbearing as tolerated, discharged on pain medications. DVT prophylaxis was considered but deferred due to no previous personal or family history. I will see the patient back in 10 to 14 days. [id number]/[facility] #: [id number] DAT
== END 2019-06-11 19:06 | disposition home or self-care (01) ==
LOC: OREAST 13:18
PROVIDERS: ATTEND Orthopaedic Surgery
DX: S83.241A Other tear of medial meniscus, current injury, right knee, initial encounter (principal); I10 Essential (primary) hypertension; E78.00 Pure hypercholesterolemia, unspecified; J45.909 Unspecified asthma, uncomplicated; K57.92 Diverticulitis of intestine, part unspecified, without perforation or abscess without bleeding; Z87.891 Personal history of nicotine dependence; Z88.0 Allergy status to penicillin; X58.XXXA Exposure to other specified factors, initial encounter
CPT/HCPCS: J0690; J1100; J1885; J2001; J2250; J2405; J2704; J2765; J2795; J3010

== ENCOUNTER 2022-06-15 07:30 | Inpatient (IN) ==
[~2022-06-15 07:30] MED LIST changes: +Buffered Lidocaine 1% SYRIN 1 ml INTRADERM ONE; -Buffered Lidocaine 1% SYRIN* 1 ML/SYRINGE INTRADERM ONE; -Lactated Ringers 1000 ML Bag* 1,000 ML IV SCH; +Lactated Ringers 1000 ml BAG 1,000 ML IV SCH; +Naloxone 0.4 mg VIAL 0.4 mg/ml 1 ml VIAL IV PRN; +Ondansetron 4 mg VIAL 2 MG/ML 2 ml VIAL IV PRN; +fentaNYL 100 mcg/2 ml 50 MCG/ML VIAL IV PRN
[2022-06-15] MEDS ORDERED: Heparin 5000 UNITS/ML 1 mL VIAL ONE (11:16)
[2022-06-15] MEDS ORDERED: Clindamycin 900 MG/D5W BAG 900 MG/50 ML BAG IVPB ONE (11:17)
[2022-06-15] MEDS ORDERED: Gentamicin ADULT 400 MG in NS 0.9% 100 ml BAG 100 ML IVPB ONE (12:00)
[2022-06-15] MEDS ORDERED: Midazolam 2 mg/2 ml VIAL 1 mg/ml 2 ml VIAL (2 mg) ONE (12:25)
[2022-06-15] MEDS ORDERED: Rocuronium 50 mg VIAL 10 mg/ml 5 ml VIAL (50 mg) ONE (12:25)
[2022-06-15] MEDS ORDERED: Propofol 10 MG/ML 20 ML BTL ONE (12:25)
[2022-06-15] MEDS ORDERED: Lidocaine 2% PF 5 ML VIAL ONE (12:25)
[2022-06-15] MEDS ORDERED: fentaNYL 250 mcg/5 ml 50 MCG/ML 5 ml VIAL (250 MCG) ONE (12:25)
[2022-06-15] MEDS ORDERED: Bupivacaine 0.25% EPI 200,000 30 ML SDV ONE (12:32)
[2022-06-15] MEDS ORDERED: Ondansetron 4 mg VIAL 2 MG/ML 2 ml VIAL ONE (13:06)
[2022-06-15] MEDS ORDERED: Dexamethasone IV 4 MG/ML VIAL 1 ml VIAL ONE (13:06)
[2022-06-15] MEDS ORDERED: HYDROmorphone 0.5 MG/0.5 ML SYRINGE ONE (13:26)
[2022-06-15] MEDS ORDERED: Acetaminophen IV 1 GM/100ML 1,000 MG/100 ML BAG IV ONE (14:29)
[2022-06-15] MEDS ORDERED: fentaNYL 100 mcg/2 ml 50 MCG/ML VIAL ONE (14:35)
[2022-06-15] MEDS ORDERED: Labetalol IV 5 MG/ML 20 ml VIAL ONE ×2 (14:47→17:48)
[2022-06-15] MEDS ORDERED: Sugammadex 500 MG/5 ML 5 ml VIAL IV PUSH ONE (16:28)
[2022-06-15] MEDS ORDERED: HYDROmorphone 1 MG/1 ML SYRINGE IV SLOW PU PRN (17:28)
[2022-06-15] MEDS ORDERED: Ondansetron 4 mg VIAL 2 MG/ML 2 ml VIAL IV PRN (17:32)
[2022-06-15] MEDS ORDERED: HYDROmorphone 0.5 MG/0.5 ML SYRINGE IV SLOW PU PRN (17:37)
[2022-06-15] MEDS ORDERED: Albuterol HFA INHALER 8 gm MDI INH PRN (17:41)
[2022-06-15] MEDS: Labetalol IV 5 MG/ML 20 ml VIAL IV PUSH PRN ×3 (17:54→18:48)
[2022-06-15] MEDS ORDERED: Lactated Ringers 1000 ml BAG 1,000 ML IV SCH (18:00)
[2022-06-15] MEDS ORDERED: Nitro 2% OINT (Nitroglycerin) 1 INCH/PAK TOPICAL ONE (18:06)
[2022-06-15] MEDS ORDERED: LORazepam 2 mg VIAL 1 ml IV PUSH PRN (18:07)
[2022-06-15] MEDS ORDERED: Lorazepam PYXIS KEY PRN (18:07)
[2022-06-15] MEDS ORDERED: HYDROmorphone 1 MG/1 ML SYRINGE ONE (18:25)
[2022-06-15] MEDS: HYDROmorphone 1 MG/1 ML SYRINGE IV PRN ×5 (18:27→18:55)
[2022-06-15] MEDS: Heparin 5000 UNITS/ML 1 mL VIAL SUBCUT SCH (21:26)
[2022-06-15] MEDS: Acetaminophen IV 1 GM/100ML 1,000 MG/100 ML BAG IV PRN (23:49)
[2022-06-16] MEDS: Acetaminophen IV 1 GM/100ML 1,000 MG/100 ML BAG IV PRN (06:56)
[2022-06-16] MEDS: Heparin 5000 UNITS/ML 1 mL VIAL SUBCUT SCH ×3 (06:57→22:27)
[2022-06-16 07:49] LABS: ABS Lymphocytes 1.4 10^3/ul (1.0-4.8); ABS Monocytes 0.9 10^3/ul (0-0.8); ABS Neutrophils 8.6 10^3/ul (1.5-7.7); Eosinophil % 0.1 %; Hematocrit 40 % (42-52); Hemoglobin 13.3 g/dL (14.0-18.0); Lymphocyte % 12.8 %; Mean Corpuscular HGB Conc 34 g/dL (31-36); Mean Corpuscular Hemoglobin 33 pg (27-31); Mean Corpuscular Volume 98 fL (80-94); Mean Platelet Volume 7.9 fL (7.4-10.4); Platelet Count 227 10^3/uL (150-450); Red Blood Count 4.05 10^6 /uL (4.18-5.48); Red Cell Distribution Width 13 % (10-15); White Blood Count 10.9 10^3/uL (3.5-10.8)
[2022-06-16 08:25] LABS: Calcium 8.6 mg/dL (8.6-10.3); Potassium 4.5 mmol/L (3.5-5.0); eGFR CKD-EPI 110.5 (>60)
[2022-06-16] MEDS ORDERED: HYDROmorphone 1 MG/1 ML SYRINGE IV SLOW PU PRN (13:50)
[2022-06-17] MEDS: Heparin 5000 UNITS/ML 1 mL VIAL SUBCUT SCH (06:31)
[2022-06-17 11:14] VITALS: BP 156/81
== END 2022-06-17 13:50 | disposition home or self-care (01) | DRG 221 ==
LOC: AA 10:44 → SSU 19:41
PROVIDERS: ADMIT Surgery; ATTEND Surgery